=== PATIENT | female | born 1975 | race Caucasian/White ===

== ENCOUNTER 2017-02-09 11:33 | Emergency (ER) | payer OTHER ==
[~2017-02-09] VITALS: Ht 152.4 cm; Wt 69.9 kg
[2017-02-09 13:03] VITALS: BP 113/80
== END 2017-02-09 13:03 | disposition home or self-care (01) ==
LOC: ED 11:33
DX: N39.0 Urinary tract infection, site not specified (principal); R21 Rash and other nonspecific skin eruption; I10 Essential (primary) hypertension; F17.200 Nicotine dependence, unspecified, uncomplicated

== ENCOUNTER 2017-02-13 12:45 | Emergency (ER) | payer OTHER ==
[2017-02-13 13:07] VITALS: BP 160/104
== END 2017-02-13 14:48 | disposition left against medical advice (07) ==
LOC: ED 12:45
DX: Z53.21 Procedure and treatment not carried out due to patient leaving prior to being seen by health care provider (principal)

== ENCOUNTER 2017-02-14 08:46 | Emergency (ER) | payer OTHER ==
[~2017-02-14] VITALS: Ht 152.4 cm; Wt 74.0 kg
[2017-02-14 12:13] VITALS: BP 144/84
[2017-02-15 04:22] LABS: RAPID PLASMA REAGIN Non Reactive (Non Reactive)
== END 2017-02-14 12:14 | disposition home or self-care (01) ==
LOC: ED 08:46
PROVIDERS: Emergency Medicine
DX: A60.00 Herpesviral infection of urogenital system, unspecified (principal); R30.0 Dysuria; R30.9 Painful micturition, unspecified
CPT/HCPCS: 86694; 87491; 87591

== ENCOUNTER 2017-02-17 07:24 | Emergency (ER) | payer OTHER ==
[2017-02-17 08:22] LABS: CALCIUM 8.8 mg/dL (8.5-10.1); CARBON DIOXIDE 29.7 mmol/L (21-32); CHLORIDE SERUM 101 mmol/L (98-107); CREATININE SERUM 0.7 mg/dL (0.6-1.0); GFR1 > 60 mL/min; GLUCOSE SERUM 118 mg/dL (74-106); POTASSIUM SERUM 3.6 mmol/L (3.5-5.1); SODIUM SERUM 136 mmol/L (136-145)
[2017-02-17 08:26] LABS: ALKALINE PHOSPHATASE 78 U/L (46-116); ALT/SGPT 89 U/L (14-59); AMYLASE 51 U/L (25-115); AST/SGOT 30 U/L (15-37); BILIRUBIN TOTAL 0.37 mg/dL (0.20-1.00); LIPASE 113 IU/L (73-393); TOTAL PROTEIN, SERUM 7.8 g/dL (6.4-8.2)
[2017-02-17 08:30] LABS: ALBUMIN 3.1 g/dL (3.4-5.0)
[2017-02-17 10:01] LABS: BASOPHIL % 0.4 % (0-2); PLATELET COUNT 349 x10^3mcL (130-400)
[2017-02-17 10:02] LABS: RED CELL DISTRIBUTION WIDTH 16.2 % (11.5-14.5)
[2017-02-17 10:41] VITALS: BP 128/86
== END 2017-02-17 10:41 | disposition home or self-care (01) ==
LOC: ED 07:24
PROVIDERS: Emergency Medicine
DX: K21.9 Gastro-esophageal reflux disease without esophagitis (principal); N76.0 Acute vaginitis; B96.89 Other specified bacterial agents as the cause of diseases classified elsewhere; B00.9 Herpesviral infection, unspecified; D64.9 Anemia, unspecified; I10 Essential (primary) hypertension
CPT/HCPCS: 83880; J2405; J3490; Q0092

== ENCOUNTER 2017-02-17 23:32 | Emergency (ER) | payer OTHER ==
[2017-02-18 02:49] VITALS: BP 159/103
== END 2017-02-18 03:59 | disposition home or self-care (01) ==
LOC: ED 23:32
DX: R10.9 Unspecified abdominal pain (principal); I10 Essential (primary) hypertension; Z98.51 Tubal ligation status
CPT/HCPCS: Q0092

== ENCOUNTER 2017-02-19 12:48 | Inpatient (IN) | payer OTHER ==
[~2017-02-19] VITALS: Ht 152.4 cm; Wt 73.0 kg
[2017-02-19 14:24] LABS: CALCIUM 9.7 mg/dL (8.5-10.1); CARBON DIOXIDE 24.6 mmol/L (21-32); CHLORIDE SERUM 92 mmol/L (98-107); CREATININE SERUM 0.6 mg/dL (0.6-1.0); GFR1 > 60 mL/min; GLUCOSE SERUM 95 mg/dL (74-106); POTASSIUM SERUM 3.3 mmol/L (3.5-5.1); SODIUM SERUM 130 mmol/L (136-145)
[2017-02-19 14:28] LABS: BASOPHIL % 0.1 % (0-2)
[2017-02-19 14:29] LABS: ALBUMIN 3.7 g/dL (3.4-5.0); ALKALINE PHOSPHATASE 90 U/L (46-116); ALT/SGPT 56 U/L (14-59); AST/SGOT 35 U/L (15-37); BILIRUBIN TOTAL 0.7 mg/dL (0.20-1.00); CHOLESTEROL 147 mg/dL (<200); CHOLESTEROL/HDL RATIO 3.7; HDL CHOLESTEROL 40 mg/dL (40-60); LIPASE 88 IU/L (73-393); TOTAL PROTEIN, SERUM 8.8 g/dL (6.4-8.2); TRIGLYCERIDES 99 mg/dL (<150)
[2017-02-19 14:30] LABS: PLATELET COUNT 484 x10^3mcL (130-400); RED CELL DISTRIBUTION WIDTH 16.2 % (11.5-14.5)
[2017-02-19 14:44] LABS: UA SPECIFIC GRAVITY 1.025 (1.005-1.035); microscopic required? YES; urine erythrocyte NEGATIVE (NEGATIVE)
[2017-02-19 14:46] LABS: T3 TOTAL 1.13 ng/mL
[2017-02-19 14:52] LABS: FREE T4 1.43 ng/dL (0.76-1.46); FREE THYROXINE INDEX 4.1 ug/dL (1.4-4.5); T4(THYROXINE) 12.7 ug/dL (4.7-13.3)
[2017-02-19 16:15] VITALS: BP 158/98
[2017-02-19 16:38] LABS: MAGNESIUM 2.1 mg/dL (1.8-2.4); PHOSPHOROUS 2.9 mg/dL (2.5-4.9)
[2017-02-19 17:22] VITALS: BP 158/98
[2017-02-19 18:25] LABS: AMPHETAMINE QUAL UR NONE DETECTED (NEG <=1000)
[2017-02-19 18:27] LABS: RED BLOOD CELLS 5.02 M/mm3 (4.10-5.10)
[2017-02-19 18:30] LABS: IRON 33 ug/dL (50-170); TOTAL IRON BINDING CAPACITY 446 ug/dL (250-450)
[2017-02-20 05:56] VITALS: BP 128/80
[2017-02-20 06:26] LABS: BASOPHIL % 0.3 % (0-2)
[2017-02-20 06:27] LABS: CALCIUM 8.5 mg/dL (8.5-10.1); CARBON DIOXIDE 23.5 mmol/L (21-32); CHLORIDE SERUM 107 mmol/L (98-107); CREATININE SERUM 0.6 mg/dL (0.6-1.0); GFR1 > 60 mL/min; GLUCOSE SERUM 89 mg/dL (74-106); MAGNESIUM 2.4 mg/dL (1.8-2.4); PHOSPHOROUS 2.7 mg/dL (2.5-4.9); POTASSIUM SERUM 4.4 mmol/L (3.5-5.1); SODIUM SERUM 138 mmol/L (136-145)
[2017-02-20 06:36] LABS: PLATELET COUNT 452 x10^3mcL (130-400); RED CELL DISTRIBUTION WIDTH 16.1 % (11.5-14.5)
[2017-02-20 11:08] VITALS: BP 107/60
[2017-02-20 13:30] VITALS: BP 95/54
[2017-02-20 17:51] VITALS: BP 118/77
[2017-02-20 21:30] VITALS: BP 98/58
[2017-02-21 06:11] VITALS: BP 118/81
[2017-02-21 06:57] LABS: BASOPHIL % 0.7 % (0-2); PLATELET COUNT 391 x10^3mcL (130-400)
[2017-02-21 07:03] LABS: rbc morphology (normal/abnorm) ABNORMAL (NORMAL)
[2017-02-21 09:00] VITALS: BP 123/84
[2017-02-21 14:22] VITALS: BP 119/81
[2017-02-21 17:54] VITALS: BP 103/67
[2017-02-21] MEDS ORDERED: FLA500 PO (17:56)
[2017-02-21] MEDS ORDERED: VALACYCLOVIR H500 MG PO (17:57)
[2017-02-21] MEDS ORDERED: LEVAQUIN750 MG PO (18:38)
[2017-02-21] MEDS ORDERED: BD LACTINEX1.4 MG PO (18:39)
[2017-02-21] MEDS ORDERED: FLE10 PO (18:40)
[2017-02-21] MEDS ORDERED: METHYLPREDNISOLO4 MG PO (18:43)
[2017-02-21] MEDS ORDERED: NOR10T PO (18:51)
[2017-02-21 19:44] VITALS: BP 103/67
[2017-02-21] MEDS ORDERED: AMBIEN5 MG PO (20:34)
== END 2017-02-21 20:33 | disposition home or self-care (01) | DRG 347 ==
LOC: ED 12:48 → DU 15:07 → MU 15:07 → DU 16:05 → MU 02-20 11:23
PROVIDERS: Specialist; ADMIT Family Medicine
DX: M54.9 Dorsalgia, unspecified (principal); N17.0 Acute kidney failure with tubular necrosis; M94.0 Chondrocostal junction syndrome [Tietze]; E87.1 Hypo-osmolality and hyponatremia; E86.0 Dehydration; N39.0 Urinary tract infection, site not specified; R80.9 Proteinuria, unspecified; E87.6 Hypokalemia; D50.9 Iron deficiency anemia, unspecified; N76.0 Acute vaginitis; A60.04 Herpesviral vulvovaginitis; R25.2 Cramp and spasm; Z68.31 Body mass index [BMI] 31.0-31.9, adult; I10 Essential (primary) hypertension; Z98.51 Tubal ligation status; K21.9 Gastro-esophageal reflux disease without esophagitis; Z87.891 Personal history of nicotine dependence
CPT/HCPCS: 83880; 84439; J1100; J1170; J1885; J1956; J2405; J2916; J3010; J7030; Q0092; Q9967